=== PATIENT | male | born 1975 | race Caucasian/White ===

== ENCOUNTER 2018-11-30 08:23 | Inpatient (IN) | payer BC ==
[~2018-11-30] VITALS: Ht 193 cm; Wt 125.6 kg
[2018-11-30] VITALS (13 sets, daily range): BP systolic 112–149; BP diastolic 77–100; BMI 34.7; BMI 33.6
--- NOTE | ~2018-11-30 | HEMODYNAMI ---
PATIENT:STEPHEN CASE MEDICAL RECORD: [id number] : 75 LOCATION:[facility] ADMISSION DATE: 11/30/18 Generatedon:11/30/201810:42 Patient name: STEPHEN CASE Patient #: [id number] : 1975 Date of study: 11/30/2018 Page: Of Hemodynamic Procedure Report Patient Data Patient Demographics Procedure consent was obtained First Name: STEPHEN Gender: Male Last Name: EVIE : 1975 Middle Initial: S Age: 43 year(s) Patient #: [id number] Race: SSN: [id number] Additional ID: [id number] Contact details Address: [address] [place] [address] State: [place] City: [place] Zip code: [address] Past Medical History Allergies: No known allergies Admission Admission Data Admission Date: 11/30/2018 Admission Time: 8:23 Arrival Date: 11/30/2018 Arrival Time: 0:00 Admit Source: Emergency Insurance Payor: Private department health insurance [facility] #: [id number] Height (in.): 75.98 BSA: 2.57 (m2) Height (cm.): 193 BMI: 34.63 (kg/m2) Weight (lbs.): 284.4 Weight (kg.): 129 Lab Results Lab Result Date: 11/30/2018 Lab Result Time: 9:00 Biochemistry Name Units Result Min Max BUN mg/dl 15 --(--*-)-- 7 18 Creatinine mg/dl 0.9 --(-*--)-- 0.6 1.3 CBC Name Units Result Min Max Hematocrit % 43.2 --(*---)-- 42 54 Hemoglobin g/dl 15.8 --(--*-)-- 13.5 17.5 Procedure Procedure Types Cath Procedure Diagnostic Procedure [facility] w/Coron[facility] Procedure Description Procedure Date Procedure Date: 11/30/2018 Procedure Start Time: 10:28 Procedure End Time: 10:40 Procedure Staff Name Function Stephen Sanders MD Performing Physician Grace Ngo RT Monitor Boris Estrada RT Scrub Colette Driscoll RT Scrub Malcolm Agosto RN Nurse Indication Abnormal ECG Angina Procedure Data Cath Procedure Fluoroscopy Diagnostic fluoroscopy Total fluoroscopy Time: 2.9 time: 2.9 min min Diagnostic fluoroscopy Total fluoroscopy dose: dose: 1067 mGy 1067 mGy Contrast Material Contrast Material Type Amount (ml) Isovue 300 81 Entry Location Entry Primary Successful Side Size Upsize Upsize Entry Closure Succes sful Closure Location (Fr) 1 (Fr) 2 (Fr) Remarks Device Remarks Radial Right 6 Fr artery Short Estimated blood loss: 10 ml Diagnostic catheters Device Type Used For End Catheter Placement DIAGNOSTIC Edwin 110cm Procedure 5Fr catheter ([id number]) Procedure Complications No complications Procedure Medications Medication Administration Route Dosage 0.9% NaCl I.V. 100 ml/hr Oxygen etCO2 Nasal cannula 2 l/min Heparin Flush Bag added to field 2 bags (1000units/500ml NS) Lidocaine 2% added to field 20 Radial Cocktail added to field 1 syringe (Verapamil 2mg/Nitro 400mcg/Heparin 1500units) Versed I.V. 1 mg Fentanyl I.V. 50 mcg Radial Cocktail I.A. 1 syringe (Verapamil 2mg/Nitro 400mcg/Heparin 1500units) Hemodynamics Rest BSA: 2.57 (m2) HGB: 15.8 (g/dl) O2 Consumption: Estimated: 324.36 (ml/min) O2 Co nsumption indexed: Estimated:126.21 (ml/min/m) Heart Rate: 83 (bpm) Pressure Samples Time Site Value (mmHg) Purpose Heart Use Rate(bpm) 10:31 LV 148/-14,3 Snapshot 88 Gradients Valve Time Site Site Mean SEP/DFP Peak To Heart Use 1 2 (mmHg) (sec/min) Peak Rate (mmHg) (bpm) Aortic 10:32 LV AO 74 Snapshots Pre Cath Intra NCS Post Cath Vital Signs Time Heart Resp SPO2 etCO2 NIBP (mmHg) Rhythm Pain Sedation Rate (ipm) (%) (mmHg) Status Level (bpm) 10:15:56 82 22 95 0 140/91(112) NSR 0 (11) 10(A) , No pain 10:20:16 84 26 95 0 143/97(114) NSR 0 (11) 10(A) , No pain 10:24:38 79 17 92 38.9 140/90(106) NSR 0 (11) 10(A) , No pain 10:28:58 80 18 96 41.9 140/94(109) NSR 0 (11) 10(A) , No pain 10:33:20 90 19 92 38.1 133/88(107) NSR 0 (11) 9(A) , No pain 10:37:38 95 18 93 38.9 140/90(118) NSR 0 (11) 9(A) , No pain Medications Time Medication Route Dose Verified Delivered Reason Notes Effectiveness by by 10:17:02 0.9% NaCl I.V. 100 Malcolm Malcolm Per ml/hr Triny Agosto physician RN RN 10:17:14 Oxygen etCO2 2 l/min Malcolm Malcolm for low 02 Nasal Lorigan Samanthaigan sats cannula RN RN 10:17:45 Heparin Flush added 2 bags Malcolm Malcolm used for Bag to Lorkevin Agosto procedure (1000units/500ml field RN RN NS) 10:17:57 Lidocaine 2% added 20ml Malcolm Malcolm for local to vial Lorigan Lorigan anesthetic field RN RN 10:18:11 Radial Cocktail added 1 Malcolm Malcolm used for (Verapamil to syringe Samanthaigan Samanthaigan procedure 2mg/Nitro field RN RN 400mcg/Heparin 1500units) 10:28:02 Versed I.V. 1 mg Malcolm Malcolm for sedation Triny Agosto RN RN 10:28:12 Fentanyl I.V. 50 mcg Malcolm Malcolm for sedation Triny Agosto RN RN 10:30:02 Radial Cocktail I.A. 1 Malcolm Stephen for (Verapamil syringe Triny Sanders MD vasodilation 2mg/Nitro RN 400mcg/Heparin 1500units) Procedure Log Time Note 9:54:16 Indication : Abnormal ECG 9:54:37 Indication : Angina 9:55:56 Patient allergic to No known allergies 9:58:14 Patient Weight : 284.4 lbs 9:58:18 Patient Height : 75.98 inches 9:58:38 Insurance Payor : Private health insurance 9:58:58 Arrival Date: 11/30/2018 12:00:00 AM 9:59:01 Admit Source: Emergency department 10:00:11 Lab Result : Hemoglobin 15.8 g/dl 10:00:11 Lab Result : Hematocrit 43.2 % 10:00:11 Lab Result : BUN 15 mg/dl 10:00:11 Lab Result : Creatinine 0.9 mg/dl 10:03:38 Informed consent obtained and on chart 10:04:05 ACC Patient presents with Unstable Angina CCS Anginal Class 4--Inability to carry out any physical activity w/o angina. Angina may occur at rest. 10:04:27 ACCPatient has been prescribed/administered the following anti-anginal medication within the last 2 weeks: NITHYA-Inhibitor 10:04:37 Procedure Status Elective Heart Cath (OP). 10:05:10 Malcolm Agosto RN sent for patient. Start room use. 10:05:10 Time tracking: Regular hours (M-F 7:00 - 5:00) 10:05:16 Plan of Care:Hemodynamics will remain stable., Cardiac rhythm will remain stable., Comfort level will be maintained., Respiratory function will remain adequate., Patient/ family verbilizes understanding of procedure., Procedure tolerated without complication., Recovers from procedure without complications.. 10:05:29 H&P Date Dictated: 11/27/2018 Within 30 days and on chart., H&P Addendum completed by physician on day of procedure. (MUST COMPLETE FOR ALL OUTPATIENTS). 10:09:09 Patient received from Pre/Post Procedure Room to CCL 1 Alert and oriented. Tansferred to table in Supine position. 10:09:10 Warm blankets applied, and tiffanie hugger turned on for patient comfort. 10:09:10 Correct patient and procedure confirmed by team. 10:09:11 ECG and BP/O2 sat monitors applied to patient. 10:14:43 Vital chart was started 10:14:55 Baseline sample Acquired. 10:14:58 Rhythm: sinus rhythm 10:14:59 Full Disclosure recording started 10:15:00 Pre-procedure instructions explained to patient. 10:15:00 Pre-op teaching completed and patient verbalized understanding. 10:15:03 Family in patients room. 10:15:05 Patient NPO since Midnight. 10:15:07 Is patient on blood thinner?No 10:15:10 Patient diabetic? Yes. 10:15:11 If diabetic: On Metformin? Yes 10:15:43 If on Metformin: Last Dose? 11/29/2018 10:15:45 Previous problem with sedation/anesthesia? No ? 10:15:46 Snore? Yes 10:15:47 Sleep apnea? No 10:15:48 Deviated septum? No 10:15:49 Opens mouth fully? Yes 10:15:50 Sticks out tongue? Yes 10:15:52 Airway obstruction? No ? 10:15:54 Dentures? No ? 10:15:56 Pre procedure: right dorsailis pedis pulse 2+ Normal; easily identifiable; not easily obliterated 10:15:58 Modified Bashir's test Ulnar < 7 seconds 10:16:00 Patient pain scale 0/10 ?. 10:16:08 IV patent on arrival in right antecubital with 0.9% NaCl at [facility]. 10:16:11 Lab results completed and on chart. 10:16:15 Right Radial & Right Groin area was prepped with chlora-prep and draped in sterile fashion 10:16:16 Alarms reviewed by R. N. 10:16:17 Sharps counted by scrub and verified by R.N. 10:17:02 0.9% NaCl 100 ml/hr I.V. was administered by Malcolm Agosto RN; Per physician; 10:17:14 Oxygen 2 l/min etCO2 Nasal cannula was administered by Malcolm Agosto RN; for low 02 sats; 10:17:45 Heparin Flush Bag (1000units/500ml NS) 2 bags added to field was administered by Malcolm Agosto RN; used for procedure; 10:17:57 Lidocaine 2% 20ml vial added to field was administered by Malcolm Agosto RN; for local anesthetic; 10:18:11 Radial Cocktail (Verapamil 2mg/Nitro 400mcg/Heparin 1500units) 1 syringe added to field was administered by Malcolm Agosto RN; used for procedure; 10:25:22 --------ALL STOP TIME OUT------ 10:25:22 Final Timeout: patient, procedure, and site verified with staff and physician. All members of the team are in agreement. 10:25:24 Right Radial & Right Groin site verified by team. 10:25:27 Fire Safety Assessment: A--An alcohol-based skin anteseptic being used preoperatively., C--Open oxygen or nitrous oxide is being used., D--An ESU, laser, or fiber-optic light is being used. 10:25:30 Physical assessment completed. ASA score P 2 - A patient with mild systemic disease as per Stephen Sanders MD. 10:25:34 1) 90+ Normal kidney functon but urine findings or structural abnormalities or genetic trait point to kidney disease. 10:25:38 Maximum allowable contrast dose (3.7 X eGFR X 0.75)250 ml. 10:25:42 Sedation plan: IV Moderate Sedation Medication:Versed, Fentanyl 10:25:46 Zero performed for pressure channel P1 10:27:54 Procedure started. 10:28:02 Versed 1 mg I.V. was administered by Malcolm Agosto RN; for sedation; 10:28:12 Fentanyl 50 mcg I.V. was administered by Malcolm Agosto RN; for sedation; 10:28:24 Local anesthetic to right radial artery with Lidocaine 2% by Stephen Sanders MD.INITIAL ACCESS ONLY 10:29:30 Use device set Radial Dx or PCI 10:29:31 ACIST Syringe (67482) opened to sterile field. 10:29:32 Medline Cath Pack ([id number]) opened to sterile field. 10:29:32 Bag Decanter () opened to sterile field. 10:29:32 ACIST Hand Control (37915) opened to sterile field. 10:29:33 ACIST Manifold (47008) opened to sterile field. 10:29:33 Tegaderm 4 x 4 (1626W) opened to sterile field. 10:29:35 MBrace Wrist Support ([id number]) opened to sterile field. 10:29:36 NEEDLE Cook 21G 4cm Radial (F05645) opened to sterile field. 10:29:38 EMERALD Guide Wire (103-801) opened to sterile field. 10:29:38 SHEATH 6FR RAIN (9734650) opened to sterile field. 10:29:47 A 6 Fr Short sheath was inserted into the Right Radial artery 10:30:02 Radial Cocktail (Verapamil 2mg/Nitro 400mcg/Heparin 1500units) 1 syringe I.A. was administered by Stephen Sanders MD; for vasodilation; 10:30:04 A DIAGNOSTIC Edwin 110cm 5Fr catheter (240233) was advanced over the wire and used for Procedure. 10:31:11 LV gram done using PEREA 10:31:13 Injector settings: Ml/sec: 5, Volume: 15, 10:31:22 LV hemodynamics recorded. 10:31:41 EF : 55 % 10:32:37 Timer 1 started at 10:16 AM, stopped at 10:32 AM, duration 00:16:35 sec. 10:33:53 LCA angiography performed. 10:35:04 RCA angiography performed. 10:37:17 Catheter removed. 10:37:23 Procedure ended.(Physican Out) 10:37:34 TR BAND Standard ([id number]) opened to sterile field. 10:39:09 Fluoroscopy time 02.90 minutes. 10:39:13 Fluoroscopy dose: 1067 mGy 10:39:13 Flurop Dose total: 1067 10:39:20 Dose Area Product 60025 mGy/cm. 10:39:24 Contrast amount:Isovue 300 81ml. 10:39:27 Maximum allowable dose exceeded? No. 10:39:27 Sharps counted by scrub and verified by R.N. 10:39:30 TR band inflated with 12cc of air. 10:39:34 Post-procedure physical assessment completed. ASA score P 2 - A patient with mild systemic disease as per Stephen Sanders MD. 10:39:37 Post procedure rhythm: sinus rhythm 10:39:39 Estimated blood loss: 10 ml 10:39:41 Post procedure instruction explained to patient.Patient verbalizes understanding. 10:39:41 Patient needs reinforcement of post procedure teaching. 10:40:27 Procedure and supply charges have been captured, reviewed, submitted and are correct. 10:40:29 Procedure Complication : No complications 10:40:32 Vital chart was stopped 10:40:50 See physician's report for complete and final results. 10:40:52 Report given to Pre/Post Procedure Room. 10:40:55 Patient transfered to Pre/Post Procedure Room with Bed. 10:40:57 Procedure ended. 10:40:57 Full Disclosure recording stopped 10:41:00 End room use (Document Last) Device Usage Item Name Manufacture Quantity Catalog Hospital Part Current Minima l Lot# / Number Charge Number Stock Stock Serial# Code [facility] 1 46784 549284 922459 [id number] 20 Syringe Medical (42907) Systems Inc Medline Medline 1 [id number] 822924 02992 890560 5 Cath Pack ([id number]) Bag Microtek 1 2001S 365579 06668 276390 5 Decanter Medical Inc. () ACIST Hand Acist 1 77890 011259 620255 687449 5 Control Medical (01281) Systems Inc ACIST Acist 1 16716 734210 148318 628757 5 Manifold Medical (70530) Systems Inc Tegaderm 4 3M 1 1626W 259417 014821 372749 5 x 4 (1626W) MBrace Advanced 1 140-0250-00 185129 04013 136503 5 Wrist Vascular Support Dynamics ([id number]) NEEDLE Cook Cook Medical 1 [id number] 731338 041739 594045 5 21G 4cm Radial (L32089) EMERALD Cardinal 1 529-570 302492 212570 642301 5 Guide [facility] (064-253) SHEATH 6FR Cardinal 1 [id number] 171963 3261296 327768 5 [facility] (6726396) DIAGNOSTIC Terumo 1 40-6003 193971 415570 957456 5 Edwin 110cm 5Fr catheter (362497) TR BAND Terumo 1 [id number] 516322 843339 597579 40 Standard ([id number]) Signature Audit [place] Stage Time Signature Unsigned Intra-Procedure 11/30/2018 Grace Ngo 10:42:37 AM RT(R) Signatures Performing Physician : Signature : Stephen Sanders MD Date : Time : Monitor : Grace Ngo Signature : RT Date : Time : Nurse : Malcolm Agosto Signature : RN Date : Time : [address] [place] [address]
[2018-11-30] MEDS ORDERED: LIPITOR40 MG PO (08:47)
[2018-11-30] MEDS ORDERED: JARDIANCE25 MG PO (08:48)
[2018-11-30] MEDS ORDERED: COZAAR50 MG PO (08:48)
[2018-11-30] MEDS ORDERED: UNITHROID200 MCG PO (08:49)
[2018-11-30] MEDS ORDERED: METFORMIN HCL500 M1 PO (08:50)
[2018-11-30] MEDS ORDERED: BAYER CHEWABLE81 MG PO (08:50)
[2018-11-30 09:13] LABS: BASOPHILS 0.4 % (0-2); EOSINOPHILS 0.6 % (0-7); HEMATOCRIT 43.2 % (42.0-54.0); HEMOGLOBIN 15.8 g/dL (13.5-17.5); IMMATURE GRANULOCYTES 0.1 % (0-5); LYMPHOCYTES 22.5 % (15-50); MCH 31.7 pg (26.0-34.0); MCHC 36.6 g/dL (31.0-37.0); MCV 86.6 fL (80.0-100.0); MEAN PLATELET VOLUME 9.2 fL (7.4-10.4); MONOCYTES 10.1 % (2-11); NEUTROPHILS 66.3 % (40-80); PLATELET COUNT 304 10x3/uL (130-400); RBC 4.99 10x6/uL (4.20-6.10); RDW 13.1 % (11.5-14.5)
[2018-11-30 09:27] LABS: ALT (SGPT) 32 U/L (10-68); CALC OSMOLALITY 285 mosm/kg (275-300); CALCIUM 9.1 mg/dL (8.5-10.1); CARBON DIOXIDE 29.1 mmol/L (21.0-32.0); CHLORIDE - SERUM 104 mmol/L (98-107); CHOL - HDL RATIO 4.9 ratio (2.3-4.9); CHOLESTEROL, TOTAL 166 mg/dL (0-200); CREATININE - SERUM 0.9 mg/dL (0.6-1.3); GLUCOSE 173 mg/dL (74-106); HDL CHOLESTEROL 34 mg/dL (32-96); LDL CHOLESTEROL 111 mg/dL (0-100); LDL-HDL RATIO 3.3 ratio (1.5-3.5); POTASSIUM - SERUM 3.7 mmol/L (3.5-5.1); SODIUM 141 mmol/L (136-145); TRIGLYCERIDE 106 mg/dL (30-200); UREA NITROGEN 15 mg/dL (7-18); eGFR NON AFRICAN AMERICAN > 90 mL/min (90-120)
--- NOTE | 2018-11-30 10:49 | NUR ---
PT ARRIVED BY STRETCHER. PLACED ON MONITORS. ASSESSMENT COMPLETED. FAMILY AT BEDSIDE WITH DR. MENON. UPDATING THEM ON PT'S STATUS AND PLAN OF CARE.
--- NOTE | 2018-11-30 11:05 | NUR ---
PT RESTING COMFORTABLY. VSS. RIGHT RADIAL TR BAND IN PLACE. NO BLEEDING/HEMATOMA NOTED. FAMILY AT BEDSIDE.
--- NOTE | 2018-11-30 11:35 | NUR ---
PT RESTING COMFORTABLY. VSS. RIGHT RADIAL TR BAND IN PLACE. NO BLEEDING/HEMATOMA NOTED. FAMILY AT BEDSIDE. CALL LIGHT WITHIN REACH.
--- NOTE | 2018-11-30 11:46 | NUR ---
3cc OF AIR REMOVED FROM TR BAND. NO BLEEDING/HEMATOMA NOTED. VSS. FAMILY AT BEDSIDE. PT TOLERATED FOOD AND DRINK. DENIES NAUSEA. CALL LIGHT WITHIN REACH.
--- NOTE | 2018-11-30 12:03 | NUR ---
3cc OF AIR REMOVED FROM TR BAND. TOLERATED WELL. NO BLEEDING/HEMATOMA NOTED. VSS. FAMILY AT BEDSIDE.
--- NOTE | 2018-11-30 12:18 | NUR ---
3cc OF AIR REMOVED FROM TR BAND. NO BLEEDING/HEMATOMA NOTED. CALL LIGHT WITHIN REACH. FAMILY AT BEDSIDE.
--- NOTE | 2018-11-30 12:30 | NUR ---
TR BAND REMOVED. NO BLEEDING/HEMATOMA NOTED. DRESSING APPLIED. RIGHT WRIST BRACE IN PLACE.
--- NOTE | 2018-11-30 12:45 | NUR ---
RIGHT WRIST DRESSING C/D/I. NO S/S OF HEMATOMA NOTED. REPORT GIVEN TO HORACIO MORTENSEN RN.
--- NOTE | 2018-11-30 13:09 | NUR ---
PT AMBULATED TO RESTROOM. VOIDED WITHOUT DIFFICULTY. AMBULATED OVER TO CVICU ROOM 7. NO S/S OF DISTRESS NOTED. FAMILY WITH HIM AND ORIENTED TO ROOM. HORACIO MORTENSEN RN AT BEDSIDE FOR HANDOFF. ALL BELONGINGS WITH FAMILY/PATIENT.
--- NOTE | 2018-11-30 13:10 | NUR ---
REPORT RECEIVED FROM THE OFF GOING RN. SEE ASSESSMENT IN THE PTS FLOW SHEET. HOOKED TO ICU MONITORS. VSS AT THIS TIME. AT THE PTS BEDSIDE. CALL LIGHT IN REACH. WILL CONT POC.
--- NOTE | 2018-11-30 14:37 | NUR ---
DR BELTRAN AT THE PTS BEDSIDE TALKING ABOUT THE CABG PLANNED FOR TOMORROW AM. PRESENT AT THE TIME. NO QUESTIONS AT THIS TIME. WILL CONT POC.
[2018-11-30 15:38] LABS: BASOPHILS 0.3 % (0-2); EOSINOPHILS 0.6 % (0-7); HEMATOCRIT 41.4 % (42.0-54.0); HEMOGLOBIN 14.6 g/dL (13.5-17.5); IMMATURE GRANULOCYTES 0.3 % (0-5); LYMPHOCYTES 25.7 % (15-50); MCH 30.7 pg (26.0-34.0); MCHC 35.3 g/dL (31.0-37.0); MEAN PLATELET VOLUME 9.4 fL (7.4-10.4); MONOCYTES 8.7 % (2-11); NEUTROPHILS 64.4 % (40-80); PLATELET COUNT 311 10x3/uL (130-400); RBC 4.76 10x6/uL (4.20-6.10); RDW 13.1 % (11.5-14.5)
[2018-11-30 15:47] LABS: APTT 27.7 SECONDS (22.8-39.4); INR 1.08 (0.85-1.17); PROTIME 13.5 SECONDS (11.6-15.0)
--- NOTE | 2018-11-30 15:54 | NUR ---
DR CRONIN AT THE PTS BEDSIDE.
[2018-11-30 16:06] LABS: ALBUMIN 3.7 g/dL (3.4-5.0); ALKALINE PHOSPHATASE 77 U/L (46-116); ALT (SGPT) 29 U/L (10-68); BILIRUBIN - TOTAL 0.76 mg/dL (0.2-1.3); CALCIUM 8.7 mg/dL (8.5-10.1); CARBON DIOXIDE 24.5 mmol/L (21.0-32.0); CHLORIDE - SERUM 104 mmol/L (98-107); CHOLESTEROL, TOTAL 147 mg/dL (0-200); CREATININE - SERUM 0.8 mg/dL (0.6-1.3); POTASSIUM - SERUM 3.3 mmol/L (3.5-5.1); PROTEIN - SERUM 7.2 g/dL (6.4-8.2); SODIUM 138 mmol/L (136-145); T4 THYROXIN - FREE 1.55 ng/dL (0.76-1.46); THYROID STIMULATING HORMONE 0.69 uIU/mL (0.36-3.74); UREA NITROGEN 15 mg/dL (7-18); URIC ACID 4.9 mg/dL (2.6-7.2); eGFR NON AFRICAN AMERICAN > 90 mL/min (90-120)
[2018-11-30 16:08] LABS: CALC OSMOLALITY 277 mosm/kg (275-300); GLUCOSE 110 mg/dL (74-106)
--- NOTE | 2018-11-30 17:30 | NUR ---
PT CLEANED HIS PERIAREA. MIDSTREAM URINE SAMPLE COLLECTED.
--- NOTE | 2018-11-30 20:33 | NUR ---
PT RECEIVED WITH EYES OPEN WATCHING TV. STATES SLIGHT ANXIETY DUE TO UPCOMING PROCEDURE. VSS. NO NEEDS MADE KNOWN. CALL LIGHT IN REACH. WILL CONTINUE TO OBSERVE.
[2018-11-30 21:03] LABS: APPEARANCE CLEAR (CLEAR); COLOR YELLOW (YELLOW); NITRITE NEGATIVE (NEGATIVE); PROTEIN NEGATIVE (NEGATIVE)
[2018-11-30 21:04] LABS: BILIRUBIN NEGATIVE (NEGATIVE); GLUCOSE 1000 mg/dL (NEGATIVE); KETONE MODERATE mg/dL (NEGATIVE); UROBILINOGEN NORMAL (NORMAL)
--- NOTE | 2018-11-30 23:56 | NUR ---
REASSESSMENT COMPLETED, SEE FLOW SHEET. CALL LIGHT IN REACH. WILL CONTINUE TO OBSERVE.
[2018-12-01] VITALS (33 sets, daily range): BP systolic 105–151; BP diastolic 59–96
--- NOTE | 2018-12-01 02:37 | NUR ---
PT RESTING WITH EYES CLOSED AND CHEST RISING. NO S/S OF DISTRESS. CALL LIGHT IN REACH. WILL CONTINUE TO OBSERVE.
--- NOTE | 2018-12-01 04:31 | NUR ---
PT CLIPPED WITH CHG BATH GIVEN. LINENS CHANGED. FSBS 145. REASSESSMENT COMPLETED, SEE FLOW SHEET. WILL CONTINUE TO OBSERVE.
--- NOTE | 2018-12-01 06:47 | NUR ---
PT TO SURGERY AT 0630 WIT STAFF VIA BED.
--- NOTE | 2018-12-01 15:52 | NUR ---
PT RECIEVED TO ROOM APPROX 1447ETT 8.0 24 AT LIP PLACED ON VENT BY RT, R IJ CVL DRESSING CDI, SEE IV FLOWSHEET, R RADIAL A LINE ZEROED WITH GOOD WAVEFORM, WRIST PROTECTOR IN PLACE L RADIAL HARVEST SITE WITH COBAN AROUND SITE, MIDSTERNAL AND SUBSTERNAL DRESSINGS CDI WITH SUBSTERNAL TPM WIRES COILED, L&R VINCE DRAINS COMPRESSED WITH BLOODY DRAINAGE, CTS WITH 1 SINGLE AND 2 Y'D TOGETHER, CRITICORE DE OLIVEIRA DRAINING YELLOW URINE, TEDS AND SCDS IN PLACE, DR BELTRAN UPDATED , DENY ALL QUESTIONS [address] BELTRAN WITH ORDERS FOR 40K OVER 2 HOURS, 1 AMP CALCIUM AND NO BICARB AND ABG IN 30 MIN, RT NOTIFIED PT ABLE TO FOLLOW COMMANDS, ON SIMV RATE 10 TV500 FIO2 40 PEEP 5
--- NOTE | 2018-12-01 17:56 | NUR ---
ONE AMP BICARB GIVEN AFTER ABGS PER DR BELTRAN, NO PREVIOUS BICARB GIVEN PER DR BELTRAN
--- NOTE | 2018-12-01 18:33 | NUR ---
ABGS CALLED TO DR BELTRAN, ORDERS TO NOT TREAT BASE EXCESS AND TO EXTUBATE, NOTIFIED OF ELEVATED HR, NO NEW ORDERS
--- NOTE | 2018-12-01 18:50 | NUR ---
PT EXTUBATED 1834 AND RESTRAINTS REMOVED, PT ON 4LNC,GOOD COUGH AND 500-750 IN IS, EDUCCATED ON SPLINTING WITH PILLOW
[2018-12-02] VITALS (22 sets, daily range): BP systolic 106–134; BP diastolic 59–85
--- NOTE | 2018-12-02 00:50 | NUR ---
PATIENT DANGLED AT BEDSIDE AND TOLERATED WELL. PATIENT DENIES PRITI DIZZINESS OR NAUSEA AT THIS TIME. CALL LIGHT WITHIN REACH, BED IN LOW POSITION.
[2018-12-02 06:51] LABS: ALKALINE PHOSPHATASE 65 U/L (46-116); ALT (SGPT) 29 U/L (10-68); BILIRUBIN - TOTAL 0.96 mg/dL (0.2-1.3); CALCIUM 7.6 mg/dL (8.5-10.1); CARBON DIOXIDE 23.3 mmol/L (21.0-32.0); CHLORIDE - SERUM 103 mmol/L (98-107); PROTEIN - SERUM 6.3 g/dL (6.4-8.2); SODIUM 139 mmol/L (136-145); UREA NITROGEN 15 mg/dL (7-18); eGFR NON AFRICAN AMERICAN 87 mL/min (90-120)
[2018-12-02 06:56] LABS: CALC OSMOLALITY 283 mosm/kg (275-300); GLUCOSE 191 mg/dL (74-106); POTASSIUM - SERUM 4.2 mmol/L (3.5-5.1)
--- NOTE | 2018-12-02 07:40 | NUR ---
SHIFT REPORT RECEIVED. PT RESTING COMFORTABLY IN CHAIR. ON 3L OF O2 VIA NC. HAS RIGHT RADIAL DEBORA. LEFT ARM HARVEST SITE WRAPPED IN NITHYA BANDAGE. RIJ CVL WITH PLASMOLYTE AT 100ML/HR, AMIODARONE AT 16.7ML/HR, CARDIZEM AT 5ML/HR, AND ZINACEF AT 11.4. MIDSTERNAL INCISION WITH DRESSING C/D/I. SUBTERNAL CHEST TUBES CONNECTED TO 20CM SUCTION. NO AIR LEAK NOTED. R AND L VINCE DRAINS NOTED WITH BLOODY DRAINAGE NOTED. TEDS ON BILATERAL LEGS. COMPLETE SHIFT ASSESMENT CHARTED IN FLOWSHEET. CALL LIGHT IN REACH. AWARE OF LIMITATIONS. WILL CONTINUE TO MONITOR.
[2018-12-02 07:46] LABS: HEMATOCRIT 37.3 % (42.0-54.0); HEMOGLOBIN 12.9 g/dL (13.5-17.5); MCH 30.6 pg (26.0-34.0); MCHC 34.6 g/dL (31.0-37.0); MCV 88.4 fL (80.0-100.0); MEAN PLATELET VOLUME 9.8 fL (7.4-10.4); RBC 4.22 10x6/uL (4.20-6.10); RDW 13.5 % (11.5-14.5); WBC 21.9 10x3/uL (4.8-10.8)
--- NOTE | 2018-12-02 09:00 | NUR ---
A LINE AND DE OLIVEIRA CATHETER DC'D PER ORDERS. AM MEDS HAVE BEEN GIVEN. 25MG LOPRESSOR GIVEN PER DR. BELTRAN'S ORDERS. NITHYA BANDAGE REMOVED FROM LEFT FOREARM. EDGES OF INCISION WELL APPROXIMATED. NO SIGNS OF INFECTION NOTED. WILL CONTINUE TO MONITOR.
--- NOTE | 2018-12-02 13:50 | NUR ---
C/O PAIN 10/10 AT CHEST TUBE INCISION SITE, PERCOCET 10/325 MG GIVEN PER MAR FLWOSHEET, CHEST TUBES DC'D BY SHAWN WITH DR CLINE, GAUZE DRESSING APPLIED, LEFT TPM WIRE IN PLACE, COVERED WITH OPSITE DRESSING, TOLERATED WITHOUT DIFFICULTY
--- NOTE | 2018-12-02 16:50 | NUR ---
C/O OF PAIN IN CHEST 10/28 REQUESTING PERCOCET 5/325, GIVEN PER MAR FLOWSHEET AND ORDER, REPOSITIONED UP AND TO BACK WITH HEELS FLOATED, NO OTHER NEEDS AT THIS TIME
--- NOTE | 2018-12-02 20:45 | NUR ---
[employer] STAFF HERE TO ASSESS PACEMAKER PER DR. CLINE. DR. CLINE NOTIFIED OF ATRIAL LEAD DISPLACEMENT PER [employer] STAFF.
[2018-12-03] VITALS (24 sets, daily range): BP systolic 103–155; BP diastolic 67–83; Ht 193 cm; Wt 125.6 kg
[2018-12-03 06:42] LABS: HEMATOCRIT 31.8 % (42.0-54.0); HEMOGLOBIN 10.9 g/dL (13.5-17.5); MCH 30.2 pg (26.0-34.0); MCHC 34.3 g/dL (31.0-37.0); MCV 88.1 fL (80.0-100.0); MEAN PLATELET VOLUME 9.4 fL (7.4-10.4); RBC 3.61 10x6/uL (4.20-6.10); RDW 13.3 % (11.5-14.5); WBC 22.4 10x3/uL (4.8-10.8)
[2018-12-03 06:50] LABS: ALBUMIN 2.7 g/dL (3.4-5.0); ALKALINE PHOSPHATASE 63 U/L (46-116); ALT (SGPT) 30 U/L (10-68); BILIRUBIN - TOTAL 1.14 mg/dL (0.2-1.3); CALC OSMOLALITY 272 mosm/kg (275-300); CALCIUM 7.9 mg/dL (8.5-10.1); CARBON DIOXIDE 24.2 mmol/L (21.0-32.0); CHLORIDE - SERUM 98 mmol/L (98-107); CREATININE - SERUM 0.9 mg/dL (0.6-1.3); GLUCOSE 152 mg/dL (74-106); POTASSIUM - SERUM 4.1 mmol/L (3.5-5.1); PROTEIN - SERUM 6.3 g/dL (6.4-8.2); SODIUM 134 mmol/L (136-145); UREA NITROGEN 18 mg/dL (7-18); eGFR NON AFRICAN AMERICAN > 90 mL/min (90-120)
--- NOTE | 2018-12-03 07:56 | NUR ---
REPORT RECIEVED FROM THE OFF GOING RN. SEE ASSESSMENT IN THE PTS FLOW SHEET. PT SITTING OOB IN HIS BEDSIDE CHAIR. PTS GAVE HIM A CHD BATH. VSS AT THIS TIME. NSR ON THE MONITOR. 2L VIA NC. RIGHT IJ CVL NOTED. SEE IV FLOW SHEET FOR GTTS. MIDSTERNAL DRESSING C/D/I. SUBSTERNAL DRESSING C/D/I WITH A L AND R VINCE DRAIN. BOTH COMPRESSED WITH SEROUSANGENIOUS DRAINGE. LEFT ARM INCISION WELL APPROXIMATED. NO S/SX OF INFECTION NOTED. PT PULLS ABOUT 1000 ON HIS IS. INSTRUCTED TO DO 10X'S/H. ENCOURAGED TCDB AND SPLINTING WITH HIS PILLOW. DENIES PAIN AT THIS TIME. CALL LIGHT IN REACH. WILL CONT POC.
--- NOTE | 2018-12-03 09:00 | NUR ---
PHYSCIAL THEARPY AT THE PTS BEDSIDE. AMBULATED WITH THE PT ABOUT 75 FEET WITH A SLOW STEADY GAIT. PT TOLERATED WELL. WILL CONT POC.
--- NOTE | 2018-12-03 10:31 | NUR ---
PT ASSISTED TO THE BATHROOM. LOTS OF GAS NOTED. PT ASSISTED BACK TO HIS BEDSIDE CHAIR. CALL LIGHT IN REACH. WILL CONT POC
--- NOTE | 2018-12-03 11:30 | NUR ---
DR CAGE AT THE PTS BEDSIDE.
--- NOTE | 2018-12-03 11:50 | NUR ---
PT REQUESTED PAIN MEDICATION. TYLENOL LIMIT WILL BE EXCEEDED AFTER THIS TIME. DR BELTRAN'S NURSE NOTIFIED. SEE ORDERS.
--- NOTE | 2018-12-03 13:10 | NUR ---
FANTANYL PATCH SIGNED AND DATED AND PLACED ON RIGHT DELTOID WITH A TEGADERM COVERING THE PATCH.
--- NOTE | 2018-12-03 15:00 | NUR ---
REASSESSMENT COMPLETED. SEE FLOW SHEET. PT DENIES NEEDS/PAIN AT THIS TIME. CALL LIGHT IN REACH. WILL CONT POC.
--- NOTE | 2018-12-03 18:00 | NUR ---
PT CONT TO USE IS. VSS. WILL POC. T
--- NOTE | 2018-12-03 19:30 | NUR ---
Received patient sitting in chair at beside, assessment completed per flowsheet. Patient AO x4, answers appropriately/follows instructions. S1/S2 noted Sinus Tach on telemetry, rythmic and regular. Breathing is shallow/unlabored on room air with O2 sat 91%, lung sounds clear bilateral upper and mid with diminished lower. Midline sternum/Substernal incision dressing CDI, Jose x2 with small serosanguinous drainage. Abdomen is round/soft with bowel sounds active x4, non-tender. Patient ambulated to bed with standby assist, gait is slow/upright. All pulses palpable with cap refill < 3 sec, skin warm/dry. C/O incisional pain 4/10, PRN medication provided and will reassess. No further needs at this time, see flowsheet for details. All VSS and will continue to monitor.
--- NOTE | 2018-12-03 20:28 | MORECARE ---
CASE MANAGEMENT DISCHARGE SUMMARY PATIENT: STEPHEN CASE UNIT: [id number] ADM DATE: 11/30/18 AGE: 43 : 75 SEX: M ROOM/BED: D[facility] AUTHOR: PALMER,DOC PHYSICIAN: REFERRING PHYSICIAN: BELEN MENON M.D. 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 Patient lives at home with his and plans to return there upon discharge. Patient feels this would be a safe discharge. CM discussed availability / needs of home health and medical equipment. Patient denies any discharge needs at this time. Patient states he will have his drive him home upon discharge. CM will continue to follow and assist as needed with discharge planning / needs. General Car Supervisor Yard: Corazon Kearney DCPIA - Discharge Planning Initial Assessment Updated by [email or web address]: Corazon Kearney on 12/03/18 8:24 pm * Is the patient Alert and Oriented? Yes * How many steps to enter\exit or inside your home? * PCP KIKE HARVEY * [facility] - [phone] * Preadmission Environment Home with Family * ADLs Independent * Equipment None * List name and contact numbers for known caregivers / representatives who currently or will assist patient after discharge: CAROLYN CASE - - [phone] * Verbal permission to speak to the caregivers and representatives has been obtained from the patient. Yes * Community resources currently utilized None * Additional services required to return to the preadmission environment? No * Can the patient safely return to the preadmission environment? Yes * Has this patient been hospitalized within the prior 30 days at any hospital? No Patient Name: STEPHEN CASE Page [id number] at 2028 All edits/amendments must be made on the electronic document DICTATION DATE: 12/03/182026 DIRECTOR OF WEB MARKETING: REANNA 12/03/182026 RPT#: [id number] DC DATE: STATUS: ADM IN [facility] [address] [place] [address] END OF REPORT
--- NOTE | 2018-12-03 21:10 | NUR ---
Patient resting in bed with eyes closed and family at bedside for visitation, discussed discharge plans/treatment with all questions answered to satisfaction. HS meds given without difficulty, no further needs at this time and will continue to monitor.
--- NOTE | 2018-12-03 23:10 | NUR ---
Reassessment completed per flowsheet, no changes noted from previous assessment. S1/S2 noted NSR on telemetry, rythmic and regular. Midline sternum/substernal incision dressing CDI, Jose x2 with scant serous drainage. Repositioned for comfort, see flowsheet for details. All VSS and will continue to monitor.
[2018-12-04] VITALS (24 sets, daily range): BP systolic 108–145; BP diastolic 66–82
--- NOTE | 2018-12-04 03:02 | NUR ---
Reassessment completed per flowsheet, no changes from previous assessment. S1/S2 noted NSR on telemetry, rythmic and regular. Breathing is shallow on room air with O2 sat 94%, lung sounds clear bilateral upper and mid with diminished lower. Midline sternum/Substernal incision dressing CDI, Jose x2 with scant drainage. All pulses palpable with cap refill < 3 sec, skin warm/dry. Denies pain or other needs at this time, see flowsheet for details. All VSS and will continue to monitor.
[2018-12-04 06:08] LABS: HEMATOCRIT 28.3 % (42.0-54.0); HEMOGLOBIN 9.8 g/dL (13.5-17.5); MCH 30.7 pg (26.0-34.0); MCHC 34.6 g/dL (31.0-37.0); MCV 88.7 fL (80.0-100.0); MEAN PLATELET VOLUME 9.4 fL (7.4-10.4); RBC 3.19 10x6/uL (4.20-6.10); RDW 13.3 % (11.5-14.5); WBC 18.3 10x3/uL (4.8-10.8)
[2018-12-04 06:38] LABS: ALBUMIN 2.6 g/dL (3.4-5.0); ALKALINE PHOSPHATASE 66 U/L (46-116); ALT (SGPT) 23 U/L (10-68); BILIRUBIN - TOTAL 0.83 mg/dL (0.2-1.3); CALC OSMOLALITY 278 mosm/kg (275-300); CHLORIDE - SERUM 100 mmol/L (98-107); CREATININE - SERUM 0.8 mg/dL (0.6-1.3); GLUCOSE 126 mg/dL (74-106); POTASSIUM - SERUM 3.9 mmol/L (3.5-5.1); PROTEIN - SERUM 6.4 g/dL (6.4-8.2); SODIUM 137 mmol/L (136-145); UREA NITROGEN 20 mg/dL (7-18); eGFR NON AFRICAN AMERICAN > 90 mL/min (90-120)
[2018-12-04 06:39] LABS: CARBON DIOXIDE 18.1 mmol/L (21.0-32.0)
--- NOTE | 2018-12-04 10:49 | NUR ---
0907: UNCONTROLLED ATRIAL FIB RATE 15S-160 NOTED AFTER WALK. SEBASTIEN ALEX NOTIFIED TO RELAY TO DR. BELTRAN. 0915: REC'D ORDERS FOR IV CORDARONE BOLUS AND DRIP FROM DR. BELTRAN. 1045: REMAINS IN UCAF RATE 130-140.
--- NOTE | 2018-12-04 19:55 | NUR ---
REPORT REC'D AND CARE ASSUMED, REC'D PT SITTING UP IN RECLINER, AWAKE, ALERT, AND ORIENTED X 4, RIJ CVL WITH AMIODARONE INFUSING @ 0.5MG/MIN OR 5CC/HR, MIDSTERNAL DRSG CDI, SUBSTERNAL DRSG TO PREVIOUS CT SITE CDI, LEFT FOREARM INCISION OPEN TO AIR, WELL APPROXIMATED, ABD SOFT WITH HYPOACTIVE BS, BILAT TEDS, SCDS OFF WHILE UP IN CHAIR, PT REQUESTING SOMETHING FOR PAIN, CALL LIGHT IN REACH.
--- NOTE | 2018-12-04 20:05 | NUR ---
PERCOCET 10/325 GIVEN FOR PAIN AT THIS TIME, AT BS, UPDATE GIVEN AND QUESTIONS ANSWERED.
--- NOTE | 2018-12-04 20:45 | NUR ---
PT ASSISTED BACK TO BED, REMAINS IN ROOM, PT REPOSITIONED UP IN BED FOR COMFORT, 450CC EMPTIED FROM URINAL, PT DENIES FURTHER NEEDS, BED IN LOW POSITION, CALL LIGHT IN REACH.
--- NOTE | 2018-12-04 21:15 | NUR ---
EVENING MEDS GIVEN ORDERED, FSBS 137, NO COVERAGE REQUIRED, PT DENIES NEEDS.
--- NOTE | 2018-12-04 23:03 | NUR ---
PT REQUESTING TO BE PULLED UP IN BED, STATES " I AM HURTING AGAIN JUST A LITTLE BIT". PERCOCET 5 GIVEN FOR COMPLAINTS OF PAIN, RATING "5" ON 0-10 PAIN SCALE, CM-94 SR, BP STABLE, WILL MONITOR FOR CHANGES.
[2018-12-05] VITALS (24 sets, daily range): BP systolic 106–145; BP diastolic 62–82
--- NOTE | 2018-12-05 01:30 | NUR ---
PT RESTING QUIETLY IN BED WATCHING TV, BP STABLE, CM-SR, PT DENIES NEEDS, CALL LIGHT IN REACH.
--- NOTE | 2018-12-05 03:00 | NUR ---
REASSESSMENT COMPLETED, ROUTINE MEDS GIVEN ORDERED, PT REPOSITIONED UP IN BED, PT DENIES PAIN OR FURTHER NEEDS, SR UP X 2, CALL LIGHT IN REACH.
--- NOTE | 2018-12-05 04:45 | NUR ---
PT TAKEN TO RADIOLOGY FOR PA AND LATERAL, TOLERATED WELL
--- NOTE | 2018-12-05 05:15 | NUR ---
PT BACK FROM RADIOLOGY ASSISTED TO RECLINER, IN ROOM TO ASSIST PT WITH BATH, COMPLETE LINEN CHANGE PROVIDED, CALL LIGHT IN REACH.
[2018-12-05 06:42] LABS: ALBUMIN 2.7 g/dL (3.4-5.0); ALKALINE PHOSPHATASE 75 U/L (46-116); ALT (SGPT) 28 U/L (10-68); BILIRUBIN - TOTAL 0.86 mg/dL (0.2-1.3); CALC OSMOLALITY 273 mosm/kg (275-300); CALCIUM 8.2 mg/dL (8.5-10.1); CARBON DIOXIDE 16.3 mmol/L (21.0-32.0); CHLORIDE - SERUM 98 mmol/L (98-107); CREATININE - SERUM 0.7 mg/dL (0.6-1.3); GLUCOSE 140 mg/dL (74-106); POTASSIUM - SERUM 3.7 mmol/L (3.5-5.1); PROTEIN - SERUM 7.1 g/dL (6.4-8.2); SODIUM 135 mmol/L (136-145); UREA NITROGEN 19 mg/dL (7-18); eGFR NON AFRICAN AMERICAN > 90 mL/min (90-120)
[2018-12-05 06:57] LABS: HEMATOCRIT 30.2 % (42.0-54.0); HEMOGLOBIN 10.4 g/dL (13.5-17.5); MCH 30.1 pg (26.0-34.0); MCHC 34.4 g/dL (31.0-37.0); MCV 87.5 fL (80.0-100.0); MEAN PLATELET VOLUME 9.5 fL (7.4-10.4); RBC 3.45 10x6/uL (4.20-6.10); RDW 13.5 % (11.5-14.5); WBC 15.9 10x3/uL (4.8-10.8)
--- NOTE | 2018-12-05 08:08 | NUR ---
REVIEWED CAREPLAN AND AGREE WITH CURRENT
[2018-12-05] MEDS ORDERED: HYDROCHLOROTH12.5 M1 PO (09:21)
--- NOTE | 2018-12-05 10:39 | NUR ---
0915-AMBULATED IN UNIT ON TELEMETRY WITH PHYSICAL THERAPY AND TOLERATED WELL-SR 108
--- NOTE | 2018-12-05 15:35 | NUR ---
1215-DR CLINE AT BEDSIDE-SPOKE WITH PT REGARDING STATUS AND PLAN OF CARE 1300-R IJ SALINE LOCKED -N/S ON MONITOR 1300-AMBULATING WITH PHYSICAL THERAPY 1445-SITTING UP IN CHAIR SR ON MONITOR
--- NOTE | 2018-12-05 18:16 | NUR ---
1750-R PERIPHERAL IV STARTED WITH 20 G -R IJ CORDIS REMOVED PER PROTOCOL 1814-ENCOURAGED PT TO WALK HALLWAY -TELEMETRY IN PLACE
--- NOTE | 2018-12-05 19:30 | NUR ---
REPORT REC'D AND CARE ASSUMED, REC'D PT SITTING UP IN RECLINER WATCHING TV ON ROOM AIR, PT AWAKE, ALERT, AND ORIENTED X 4, PT PULLING [id number] ON IS, RIGHT FOREARM PIV SALINE LOCKED, MIDSTERNAL DRSG CDI, PREVIOUS CT SITES AND EXTERNAL P/M WIRES SECURED TO SUBSTERAL AREA, ABD SOFT, BS HYPOACTIVE, LEFT FOREARM HARVEST SITE, BRUISING NOTED, INCISION WELL APPROXIMATED, TRACE OF EDEMA NOTED TO EXT'S, TEDS ON, PPP, CALL LIGHT IN REACH.
--- NOTE | 2018-12-05 20:00 | NUR ---
AND CHILDREN AT BS VISITING, PT DENIES NEEDS, VSS.
--- NOTE | 2018-12-05 21:15 | NUR ---
EVENING MEDS GIVEN ORDERED, FSBS 127, NO COVERAGE REQUIRED, PT REQUESTING PAIN PILL, RATING PAIN "4" ON 0-10 PAIN SCALE, PERCOCET 10 GIVEN PO WITH MEDS, PT DENIES FURTHER NEEDS, BED IN LOW POSITION, CALL LIGHT IN REACH.
--- NOTE | 2018-12-05 22:00 | NUR ---
PT RESTING IN BED EYES CLOSED, RESP EVEN AND UNLABORED, VSS, CM -SR, WILL MONITOR CLOSELY FOR CHANGES.
--- NOTE | 2018-12-05 23:28 | NUR ---
REASSESSMENT COMPLETED, PT RESTING EYES CLOSED AFTER BREATHING TX, BP STABLE, BBS CLEAR TO AUSCULTATION, CM-SR, TEDS AND SCDS INTAC, SR UP X 2.
[2018-12-06] VITALS (24 sets, daily range): BP systolic 104–143; BP diastolic 60–84
--- NOTE | 2018-12-06 01:30 | NUR ---
PT'S LINEN WET, ASSISTED PT OUT OF BED TO CHAIR, CHG BATH AND COMPLETE LINEN CHANGE PROVIDED, PT BACK TO BED WITHOUT DIFFICULTY, ICE WATER PROVIDED, PT DENIES PAIN OR FURTHER NEEDS.
--- NOTE | 2018-12-06 03:35 | NUR ---
PT RESTING EYES CLOSED, AWAKENED TO TAKE SCHEDULED DOSE OF CARDIZEM, BP STABLE, CM-SR @ 88, WILL MONITOR FOR CHANGES.
--- NOTE | 2018-12-06 04:35 | NUR ---
PT COMPLAINS OF PAIN IN THE MIDDLE OF CHEST WHEN TAKING A DEEP BREATH, CM-SR @ 87, BP STABLE, PERCOCET 10 GIVEN PO BY Carrie SWEENEY RN, PT DENIES OTHER NEEDS, SR UP X 2, CALL LIGHT IN REACH.
[2018-12-06 05:56] LABS: HEMATOCRIT 28.5 % (42.0-54.0); HEMOGLOBIN 9.9 g/dL (13.5-17.5); MCH 30.6 pg (26.0-34.0); MCHC 34.7 g/dL (31.0-37.0); MEAN PLATELET VOLUME 8.8 fL (7.4-10.4); RBC 3.24 10x6/uL (4.20-6.10); RDW 13.6 % (11.5-14.5); WBC 13.1 10x3/uL (4.8-10.8)
--- NOTE | 2018-12-06 06:00 | NUR ---
AM MEDS GIVEN, NO VISITORS IN AT THIS TIME, PT REPORTS PAIN IN CHEST IS GONE DENIES FURTHER NEEDS.
[2018-12-06 06:11] LABS: ALBUMIN 2.3 g/dL (3.4-5.0); ALKALINE PHOSPHATASE 69 U/L (46-116); ALT (SGPT) 25 U/L (10-68); BILIRUBIN - TOTAL 0.74 mg/dL (0.2-1.3); CALC OSMOLALITY 276 mosm/kg (275-300); CALCIUM 8.1 mg/dL (8.5-10.1); CARBON DIOXIDE 14.5 mmol/L (21.0-32.0); CHLORIDE - SERUM 103 mmol/L (98-107); CREATININE - SERUM 0.7 mg/dL (0.6-1.3); GLUCOSE 117 mg/dL (74-106); POTASSIUM - SERUM 3.9 mmol/L (3.5-5.1); PROTEIN - SERUM 6.4 g/dL (6.4-8.2); SODIUM 137 mmol/L (136-145); UREA NITROGEN 17 mg/dL (7-18); eGFR NON AFRICAN AMERICAN > 90 mL/min (90-120)
--- NOTE | 2018-12-06 09:24 | EC ---
PATIENT:STEPHEN CASE DATE OF SERVICE: 11/30/18 SEX: M MEDICAL RECORD: [id number] DATE OF : [birth year] LOCATION:[place] [address] AGE OF PATIENT: 43 ADMISSION DATE: 11/30/18 REFERRING PHYSICIAN: INTERPRETING PHYSICIAN: ARMANDO GAINES MD ECHOCARDIOGRAM REPORT ECHO CHARGES Date: 12/01/18 CLINICAL DIAGNOSIS: ECHOCARDIOGRAPHIC MEASUREMENTS (adult normal given) AC root (d.<3.7cm) cm LV Septum d (<1.2 cm> cm Valve Excursion cm LV Septum (systole) cm Left Atria (s.<4.0cm> cm LVPW d(<1.2cm) cm RV (d.<2.3cm) cm LVPW (sytole) cm LV diastole(<5.6CM) cm MV E-F(>70mm/sec) cm LV systole cm LVOT Diameter cm MV exc.(>10mm) cm Est.ejection fraction (50-75%) % DOPPLER: LVIT cm/sec A cm/sec E cm/sec LA 3.7 cm/sec RVSP mmHg LVOT cm/sec AOP1/2T m/s Asc. Ao cm/sec RVOT cm/sec RA cm/sec PA cm/sec AV Gradient Peak mmHg AV Mean mmHg AV Area cm MV Gradient Peak mmHg MV Mean mmHg MV Area cm COMMENTS: [employer] Worker: Gurdeep VACA Manager Hematology: Sara Sanders TAPE# PACS Pericardial Effusion DATE OF SERVICE: PROCEDURE: An intraoperative LINO. LINO shows normal wall motion, normal contractility. Aortic valve is tricuspid. Mitral valve appears normal. Trace MR. Right-sided chambers are grossly normal. Trace TR. Postoperatively, EF appears to have more vigorous contraction with EF 55% to 60%. No significant valve pathology. TRANSINT:[id number] Voice Confirmation ID: [id number] DOCUMENT ID: [id number] ECHOCARDIOGRAM REPORT [id number] STEPHEN CASE ARMANDO GAINES MD at 0924 CC: [id number] DICTATION DATE: 12/02/18 1025 RECONCILING CLERK: 12/02/18 1222 [place] [address]
--- NOTE | 2018-12-06 16:06 | NUR ---
0800- AT BEDSIDE-ASSISTED PT TO BEDSIDE CHAIR-TOLERATED WELL 0900-AMBULATING IN [address] ON TELEMETRY-NO DIFFICULTY 1045-AMBULATING IN HALLWAY-DR CAGE AT BEDSIDE 1230-DR CLINE AT BEDSIDE 1430-AMBULATING IN HALLWAY
--- NOTE | 2018-12-06 19:20 | NUR ---
Received patient sitting up in chair at bedside, assessment completed per flowsheet. Patient AO x4, answers appropriately/follows instructions. S1/S2 noted NSR on telemetry, rythmic and regular. Breathing is even/unlabored on room air with O2 sat 93%, lung sounds clear throughout. Midline sternum/Substernal incisions dressing CDI, no bleeding/swelling noted. Abdomen is round/soft with bowel sounds active x4, non-tender. Patient ambulates soelf to bathroom without assist, no reported difficulties. C/O slight incisional pain with movement, denies needs at this time. See flowsheet for details, all VSS and will continue to monitor.
--- NOTE | 2018-12-06 21:00 | NUR ---
Patient sitting up in chair at bedside with family present for visitation, discussed discharge plans with all questions answered to satisfaction. HS meds given without difficulty, no further needs at this time. All VSS and will continue to monitor.
--- NOTE | 2018-12-06 23:10 | NUR ---
Reassessment completed per flowsheet, no changes noted from previous assessment. Midline sternum/Substernal incision dressing CDI, no bleeding/bruising noted. L forearm incision well approximated, slight bruising noted with no swelling. Denies pain or other needs at this time, see flowsheet for details. All VSS and will continue to monitor.
[2018-12-07] VITALS (10 sets, daily range): BP systolic 105–142; BP diastolic 60–78
--- NOTE | 2018-12-07 01:00 | NUR ---
Patient sleeping in bed, no s/s of distress at this time. Denies pain or other needs at this time, all VSS and will continue to monitor.
--- NOTE | 2018-12-07 03:05 | NUR ---
Reassessment completed per flowsheet, no changes noted from previous assessment. Midline sternum/Substernal incision dressing CDI, no bruising/bleeding noted. L forearm incision dressing CDI, slight bruising noted with no bleeding. All pulses palpable with cap refill < 3 sec, skin warm/dry. Denies pain or other needs at this time, see flowsheet for details. All VSS and will continue to monitor.
--- NOTE | 2018-12-07 05:00 | NUR ---
Patient resting in bed with eyes closed, repositioned for comfort. Denies pain or other needs at this time, all VSS and will continue to monitor.
[2018-12-07] MEDS ORDERED: PLAVIX75 MG PO (09:47)
[2018-12-07] MEDS ORDERED: AMIODARONE HCL200 MG PO (09:51)
[2018-12-07] MEDS ORDERED: PROCARDIA XL30 MG PO (09:52)
[2018-12-07] MEDS ORDERED: LOPRESSOR25 MG PO (09:52)
[2018-12-07] MEDS ORDERED: CARDIZEM30 MG PO (09:53)
[2018-12-07] MEDS ORDERED: COLACE100 MG PO (09:57)
[2018-12-07] MEDS ORDERED: PERCOCET 10-321 EAC1 PO (10:13)
--- NOTE | 2018-12-07 11:47 | NUR ---
DISCHARGE PAPERS REVIEWED WITH PT AND SPOUSE. R-FOREARM PIV DC'D WITH CATHETER TIP INTACT. COPY OF DISCHARGE PAPERS PLACED IN CHART. HAS APPOINTMENT WITH DR. BELTRAN ON 12/23/18 AT 1:45PM.
--- NOTE | 2018-12-07 12:03 | NUR ---
PERCOCET 10 GIVEN. PT HAS LONG RIDE HOME. WHEELED OUT TO PERSONAL VEHICLE. PERSONAL BELONGINGS SENT WITH PT. DISCHARGE INSTRUCTIONS GIVEN TO PATIENT.
--- NOTE | 2018-12-07 18:59 | MORECARE ---
CASE MANAGEMENT DISCHARGE SUMMARY PATIENT: STEPHEN CASE UNIT: [id number] ADM DATE: 11/30/18 AGE: 43 : 75 SEX: M ROOM/BED: D[facility] AUTHOR: PALMER,DOC PHYSICIAN: REFERRING PHYSICIAN: BELEN MENON M.D. 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 Patient lives at home with his and plans to return there upon discharge. Patient feels this would be a safe discharge. CM discussed availability / needs of home health and medical equipment. Patient denies any discharge needs at this time. Patient states he will have his drive him home upon discharge. CM will continue to follow and assist as needed with discharge planning / needs. Air Tank Assembler: Corazon Kearney DCPIA - Discharge Planning Initial Assessment Updated by [email or web address]: Corazon Kearney on 12/03/18 8:24 pm * Is the patient Alert and Oriented? Yes * How many steps to enter\exit or inside your home? * PCP KIKE HARVEY * [facility] - [phone] * Preadmission Environment Home with Family * ADLs Independent * Equipment None * List name and contact numbers for known caregivers / representatives who currently or will assist patient after discharge: CAROLYN CASE - - [phone] * Verbal permission to speak to the caregivers and representatives has been obtained from the patient. Yes * Community resources currently utilized None * Additional services required to return to the preadmission environment? No * Can the patient safely return to the preadmission environment? Yes * Has this patient been hospitalized within the prior 30 days at any hospital? No Last DP export: 12/03/18 7:28 p Patient Name: STEPHEN CASE Page [id number] at 1859 All edits/amendments must be made on the electronic document DICTATION DATE: 12/07/181858 SLOT MACHINE MECHANIC: REANNA 12/07/181858 RPT#: [id number] DC DATE:12/07/18 STATUS: DIS IN [facility] [address] [place] [address] END OF REPORT
--- NOTE | 2018-12-10 13:15 | OP ---
PATIENT NAME: STEPHEN CASE MEDICAL RECORD: [id number] :75 LOCATION:D[facility] ADMISSION DATE:11/30/18 SURGEON: KEVYN BELTRAN MD DATE OF OPERATION: 12/01/2018 SURGEON: Kevyn Beltran MD DUMP OPERATOR: Trevon Cardona. OPERATION PERFORMED: 1. Coronary artery bypass graft times 3 (left internal mammary to LAD, free right internal mammary artery to right coronary artery, left radial artery from aorta to obtuse marginal). 2. Left radial artery harvest. PREOPERATIVE DIAGNOSIS: Coronary artery disease. POSTOPERATIVE DIAGNOSIS: Coronary artery disease. ANESTHESIA: General endotracheal anesthesia. ESTIMATED BLOOD LOSS: Total cardiopulmonary bypass with Cell Saver retransfusion. COMPLICATIONS: None. SPECIMENS: None. CONDITION: Stable. DISPOSITION: CV ICU. OPERATIVE FINDINGS: 1. Transesophageal echocardiography revealed a normal heart. 2. Good quality left radial artery harvested open from the left upper extremity. 3. Good quality left internal mammary artery. 4. Free right internal mammary artery taken down as a skeletonized graft. 5. The vessels all had severe disease with anastomosis and plaque. The LAD anastomosis was a long onlay patch and the posterior descending artery was not amenable to bypass. The graft was placed in the distal right coronary artery in the only soft spot of the vessel. OPERATIVE INDICATION: Premature coronary artery disease and diabetes. OPERATIVE SUMMARY IN DETAIL: The patient was brought to the operating suite. General anesthesia was obtained, the patient was prepped and draped. The left radial artery harvest was performed. Side branches were divided with clips. Vessel ligated proximally and distally and oversewn. Vessel perfused with papaverine containing solution and maintained until time of surgery. The arm was closed in 2 layers and Dermabond was placed. The arm was wrapped in place at the patient's side with appropriate padding. Median sternotomy incision was made. Subcutaneous tissue was divided with electrocautery. Sternum was divided with a saw. Left hemisternum was elevated. OPERATIVE REPORT [id number] STEPHEN CASE Left pleural cavity was entered. Left internal mammary vein was taken down as a pedicle graft. The right internal mammary artery was taken down as a skeletonized graft. Heparin was given. The vessel was ligated proximally and distally and removed, perfused with papaverine solution. The sternal retractor was placed. Pericardium was opened. Heparin was given. The aorta was cannulated. Dual stage venous cannula was inserted. Activated clotting time was appropriately elevated and the patient was placed on cardiopulmonary bypass. The internal mammary on the left was taken down, made ready for anastomosis. Distal anastomotic sites were selected. Antegrade cardioplegic cannula was inserted. The patient was cooled. Crossclamp was placed. Cardioplegia was given antegrade at 15-20 minute intervals. Distal anastomoses were performed in standard technique. Proximal anastomosis with 3.5 mm punch. The patient was rewarmed. Cross clamp removed. Proximal and distal anastomotic sites inspected for bleeding. Thorough irrigation was undertaken. The patient was fully rewarmed with cardiopulmonary bypass and was stable. The patient was decannulated. Cannulation sites were oversewn. Protamine was given. Thorough irrigation was again undertaken with hemostasis ensured a single suture in the proximal radial artery graft. The drains were placed in the mediastinum and both pleural cavities. Pericardial fat was loosely reapproximated in midline. Both chests were evacuated and irrigated. Internal mammary harvest sites were inspected for bleeding. Sternum was closed using 3 wires and then sternal plates. Fascia was closed. Subcutaneous tissue was closed. Skin was closed. Dermabond was placed. The needle and sponge counts reported as correct and the patient was taken to ICU in stable condition. TRANSINT:[id number] Voice Confirmation ID: [id number] DOCUMENT ID: [id number] KEVYN BELTRAN MD at 1315 CC: BELEN MENON M.D. [id number] DICTATION DATE: 12/01/18 1435 DATA SECURITY ANALYST: 12/01/18 1607 DIS IN 12/07/18 [place] [id number]
== END 2018-12-07 12:09 | disposition home or self-care (01) | DRG 234 ==
LOC: D.CATH 08:23 → D.CVICU 12:38 → D.CATH 12:39 → D.CVICU 12:39
PROVIDERS: Thoracic Surgery (Cardiothoracic Vascular Surgery); ADMIT Internal Medicine Cardiovascular Disease; ATTEND Internal Medicine Cardiovascular Disease
PROC: B2151ZZ Fluoroscopy of Left Heart using Low Osmolar Contrast (ICD-10-PCS; 2018-11-30)
PROC: 4A023N7 Measurement of Cardiac Sampling and Pressure, Left Heart, Percutaneous Approach (ICD-10-PCS; 2018-11-30)
PROC: B2111ZZ Fluoroscopy of Multiple Coronary Arteries using Low Osmolar Contrast (ICD-10-PCS; principal; 2018-11-30 11:00)
PROC: 02100Z9 Bypass Coronary Artery, One Artery from Left Internal Mammary, Open Approach (ICD-10-PCS; 2018-12-01)
PROC: 03BC4ZZ Excision of Left Radial Artery, Percutaneous Endoscopic Approach (ICD-10-PCS; 2018-12-01)
PROC: 02100Z8 Bypass Coronary Artery, One Artery from Right Internal Mammary, Open Approach (ICD-10-PCS; 2018-12-01)
PROC: 02100AW Bypass Coronary Artery, One Artery from Aorta with Autologous Arterial Tissue, Open Approach (ICD-10-PCS; 2018-12-01)
DX: I25.110 Atherosclerotic heart disease of native coronary artery with unstable angina pectoris (principal); D62 Acute posthemorrhagic anemia; J98.11 Atelectasis; I10 Essential (primary) hypertension; E11.65 Type 2 diabetes mellitus with hyperglycemia; E78.5 Hyperlipidemia, unspecified; I48.91 Unspecified atrial fibrillation

== ENCOUNTER → 2018-12-23 12:40 | Outpatient (CLI) | payer BC ==
[2018-12-03 11:00] VITALS: BMI 34.8
[~2018-12-23 12:40] MED LIST: AMIODARONE HCL200 MG PO; BAYER CHEWABLE81 MG PO; CARDIZEM30 MG PO; COLACE100 MG PO; COZAAR50 MG PO; HYDROCHLOROTH12.5 M1 PO; JARDIANCE25 MG PO; LIPITOR40 MG PO; LOPRESSOR25 MG PO; METFORMIN HCL500 M1 PO; PERCOCET 10-321 EAC1 PO; PLAVIX75 MG PO; PROCARDIA XL30 MG PO; UNITHROID200 MCG PO
[2018-12-23 13:18] LABS: HEMATOCRIT 35.1 % (42.0-54.0); HEMOGLOBIN 11.8 g/dL (13.5-17.5); MCH 30.6 pg (26.0-34.0); MCHC 33.6 g/dL (31.0-37.0); MCV 90.9 fL (80.0-100.0); MEAN PLATELET VOLUME 8.3 fL (7.4-10.4); RBC 3.86 10x6/uL (4.20-6.10); RDW 14.5 % (11.5-14.5); WBC 7.6 10x3/uL (4.8-10.8)
[2018-12-23 13:37] LABS: ALBUMIN 3.5 g/dL (3.4-5.0); ALKALINE PHOSPHATASE 100 U/L (46-116); ALT (SGPT) 35 U/L (10-68); BILIRUBIN - TOTAL 0.35 mg/dL (0.2-1.3); CALC OSMOLALITY 284 mosm/kg (275-300); CARBON DIOXIDE 28.2 mmol/L (21.0-32.0); CHLORIDE - SERUM 103 mmol/L (98-107); CREATININE - SERUM 0.9 mg/dL (0.6-1.3); GLUCOSE 110 mg/dL (74-106); POTASSIUM - SERUM 4.5 mmol/L (3.5-5.1); PROTEIN - SERUM 7.4 g/dL (6.4-8.2); SODIUM 142 mmol/L (136-145); UREA NITROGEN 14 mg/dL (7-18); eGFR NON AFRICAN AMERICAN > 90 mL/min (90-120)
== END | disposition home or self-care (01) ==
LOC: D.LAB 12:40
PROVIDERS: ATTEND Thoracic Surgery (Cardiothoracic Vascular Surgery)
DX: J90 Pleural effusion, not elsewhere classified (principal); D64.9 Anemia, unspecified